=== PATIENT | male | born 1985 | race Two or more races ===

== ENCOUNTER 2024-08-11 12:32 | Inpatient (IN) ==
--- NOTE | 2024-08-11 12:44 | Emergency Department Note ---
Impression & Plan Alcohol withdrawal, Contusion of hand, left, Contusion of right middle finger ED Provider Note NAME: NIXON HERNANDEZ AGE: 39 SEX: M : 1985 ARRIVES VIA: Ambulance INFORMANT: Patient, EMS ED PROVIDER(S): Trevon Camarena DO CHIEF COMPLAINT: Alcohol withdrawal HPI: The patient is a 39-year-old male who presented to the emergency department by ambulance. He is currently at [facility] incarcerated since the of this month. The patient is a daily alcohol use history. Over the last 48 hours she has been having difficulty concentrating and hallucinating. The patient punched multiple jaquez stating that he saw spiders. There has been no reported trauma of the head or falls. The patient has no other history of drug use. ROS: See above HPI for pertinent positives & negatives. A total of 10 systems reviewed and were otherwise negative. PAST MEDICAL HISTORY: See Below PAST SURGICAL HISTORY: See Below FAMILY HISTORY: See Below SOCIAL HISTORY: See Below HOME MEDICATIONS: See Below ALLERGIES: See Below VITALS: See Below PHYSICAL EXAMINATION: GENERAL: Patient is awake alert in no acute distress patient is resting comfortably and showing no signs of anxiety EYES: The conjunctivae are clear. The pupils are round and reactive. EARS, NOSE, MOUTH AND THROAT: The nose is without any evidence of any deformity. NECK: The neck is nontender and supple. RESPIRATORY: Normal respiratory effort is noted there is no evidence of wheezing rhonchi or rales CARDIOVASCULAR: Regular rate and rhythm noted there no murmurs rubs or gallops normal S1 normal S2. GASTROINTESTINAL: The abdomen is soft. Abdomen is nontender. MUSCULOSKELETAL/EXTREMITIES: There is no evidence of gross deformity full range of motion is noted in the hips and shoulders. There is swelling over the lateral aspect of the left hand. There is ecchymosis noted as well. There is also swelling over the right middle finger. SKIN: There is no obvious evidence of any rash. There are no petechiae, pallor or cyanosis noted. NEUROLOGIC: Patient is awake alert and oriented x3 MEDICAL DECISION MAKING: The patient is a 39-year-old male who presented to the emergency department for altered mental status. The patient is currently incarcerated at [facility]. he has only been there for a few days. The patient admits to chronic alcohol abuse. The patient was treated with Ativan prior to arrival. I discussed the patient's laboratory and radiographic studies with him. There was a significant language barrier but even with the cheesemaking laborer he was difficulty phenacaine with the patient because of the degree of alcohol withdrawal. He was treated further with Ativan in the emergency department. I discussed his condition with the on- call [facility] hospitalist group. They have agreed to evaluate the patient in the emergency department. Triage Nursing notes reviewed. Prior medical records reviewed Vital Signs: reviewed and remarkable for tachycardia. Differential diagnosis: Infection, hypoglycemia, electrolyte abnormalities, overdose, toxicologic, cardiac sources, intracerebral event, neurologic, trauma, as well as other pathologies. ER treatment provided: See below Diagnostics interpreted by me: ECG: EKG was obtained in the emergency department. My interpretation is normal sinus rhythm at 80 bpm. There is no ectopy. There is no acute ST segment abnormalities noted. No previous tracing was available. Cardiac Monitoring: An order was placed for continuous cardiac monitoring. The monitor shows a rate of 110 bpm with sinus tachycardia. Laboratory studies: As stated above and show below. Imaging studies: See below. Radiographic imaging was reviewed by myself Consultation(s): I discussed this case with Gisel who is on-call for the [facility] hospitalist group. Past Med/Surg History Problem List (Updated 08/11/24 @ 19:00 by Trevon Camarena DO) Contusion of right middle finger (Acute) Contusion of hand, left (Acute) Alcohol withdrawal (Acute) Medical History Chronic alcohol abuse Social History Smoking Status: Never smoker Allergies Allergies Allergy/AdvReac Type Severity Reaction Status Date / Time No Known Allergies Allergy Verified 08/11/24 16:25 Home Meds Home Medications Medication Instructions Recorded Confirmed folic acid 1 mg tablet 1 mg PO DAILY 08/11/24 08/11/24 lorazepam 1 mg tablet 1 mg PO TID PRN CIWA Score > 8 08/11/24 08/11/24 olanzapine 15 mg tablet 15 mg PO HS 08/11/24 08/11/24 thiamine HCl (vitamin B1) 100 mg 100 mg PO DAILY 08/11/24 08/11/24 tablet Results & Data (ED) Vital Signs Vital Signs - 24 hr 08/11/24 12:23 08/11/24 12:23 08/11/24 12:23 Pulse Rate 88 88 Pulse Rate [Right Brachial] 88 Pulse Rate from SpO2 Sensor Pulse Rhythm Regular Regular Pulse Rhythm [Right Brachial] Regular Pulse Strength Normal Pulse Strength [Right Brachial] Normal Respiratory Rate 20 20 20 Respiratory Effort / Characteristics Non-Labored Non-Labored Respiratory Depth Normal Normal Respiratory Pattern Regular Regular Blood Pressure 145/97 H Blood Pressure [Right Arm] 145/97 H Blood Pressure Mean 113 Blood Pressure Mean [Right Arm] 113 Blood Pressure Position Sitting Blood Pressure Position [Right Arm] Sitting Pulse Oximetry 95 98 95 Oxygen Delivery Method Room Air Room Air Room Air Sepsis Recent Fever Within 48 Hours No Sepsis New/Unexplained Change in Mental Status Yes Sepsis Action Taken by Nursing No Action Required 08/11/24 12:40 08/11/24 12:46 08/11/24 13:15 Pulse Rate 84 92 H Pulse Rate [Right Brachial] 89 Pulse Rate from SpO2 Sensor 89 Pulse Rhythm Pulse Rhythm [Right Brachial] Regular Pulse Strength Pulse Strength [Right Brachial] Normal Respiratory Rate 18 21 Respiratory Effort / Characteristics Non-Labored Respiratory Depth Normal Respiratory Pattern Regular Blood Pressure 128/83 Blood Pressure [Right Arm] 139/86 Blood Pressure Mean 98 Blood Pressure Mean [Right Arm] 103 Blood Pressure Position Blood Pressure Position [Right Arm] Pulse Oximetry 99 97 Oxygen Delivery Method Room Air Sepsis Recent Fever Within 48 Hours Sepsis New/Unexplained Change in Mental Status Sepsis Action Taken by Nursing 08/11/24 13:31 08/11/24 13:47 08/11/24 13:51 Pulse Rate 88 84 Pulse Rate [Right Brachial] Pulse Rate from SpO2 Sensor Pulse Rhythm Pulse Rhythm [Right Brachial] Pulse Strength Pulse Strength [Right Brachial] Respiratory Rate 21 Respiratory Effort / Characteristics Respiratory Depth Respiratory Pattern Blood Pressure 139/86 Blood Pressure [Right Arm] Blood Pressure Mean 100 Blood Pressure Mean [Right Arm] Blood Pressure Position Blood Pressure Position [Right Arm] Pulse Oximetry 95 Oxygen Delivery Method Room Air Sepsis Recent Fever Within 48 Hours Sepsis New/Unexplained Change in Mental Status Sepsis Action Taken by [facility] Medications Current Medication List: was personally reviewed by me Laboratory Data Attestation: I reviewed the patient's lab results. 08/11/24 12:46 08/11/24 12:46 Lab Results 09/19/24 09/19/24 09/19/24 Range/Units 12:46 12:57 14:30 WBC 5.36 (4.8-10.8) K/ul RBC 4.01 L (4.70-6.10) M/uL Hgb 13.2 L (14.0-18.0) g/dl Hct 37.4 L (42.0-52.0) % MCV 93.3 (80.0-100.0) fL MCH 32.9 (25.0-34.0) pg MCHC 35.3 (32.0-36.0) g/dL RDW Std Deviation 47.5 H (36.4-46.3) fL RDW Coeff of Ramos 13.9 (11.5-14.5) % Plt Count 80 L (130-400) K/uL MPV 12.0 (9.4-12.4) fL Immature Gran % (Auto) 0.2 % Neut % (Auto) 63.4 % Lymph % (Auto) 19.8 % [place] % (Auto) 14.4 % Eos % (Auto) 1.5 % Baso % (Auto) 0.7 % Neut # (Auto) 3.40 (1.40-6.50) K/uL Lymph # (Auto) 1.06 L (1.20-3.40) K/uL [place] # (Auto) 0.77 H (0.11-0.59) K/uL Eos # (Auto) 0.08 (0.00-0.50) K/uL Baso # (Auto) 0.04 (0.00-0.20) K/uL Immature Gran # (Auto) 0.01 (0.01-0.20) K/uL Platelet Estimate Decreased L (Normal) PT 13.7 H (9.0-12.0) Seconds INR 1.3 H (0.9-1.1) Sodium 140 (136-145) mmol/L Potassium 3.7 (3.5-5.1) mmol/L Chloride 106 (98-107) mmol/L Carbon Dioxide 25 (21-32) mmol/L Anion Gap 9 (3-11) BUN 25 H (6-23) mg/dl Creatinine 1.12 (0.6-1.4) mg/dl Est Cr Clr Drug Dosing Not Reportable Est GFR ( Amer) 94.1 ml/min Est GFR (Non-Af Amer) 81.2 ml/min BUN/Creatinine Ratio 22.3 H (10-20) Glucose 95 (70-99(Fasting)) mg/dl POC Glucose 102 H (70-99) mg/dl Calcium 10.2 (8.6-10.3) mg/dl Magnesium 2.0 (1.7-2.4) mg/dl Total Bilirubin 2.6 H (0.2-1.0) mg/dl AST 68 H (13-39) U/L ALT 42 (7-52) U/L Alkaline Phosphatase 83 (34-104) U/L Total Creatine Kinase 456 H (30-223) U/L Troponin I High Sens 4.7 (0-20) pg/ml Total Protein 8.4 H (6.0-8.3) gm/dl Albumin 4.5 (3.4-5.0) gm/dl Globulin 3.9 (2.5-4.0) gm/dl Albumin/Globulin Ratio 1.2 (0.9-2) Lipase 45 (11-82) U/L Urine Color [place] Urine Appearance Cloudy A (Clear) Urine pH 5.5 (4.5-7.5) Ur Specific [place] 1.029 (1.000-1.030) Urine Protein 2+ H (Negative) Urine Glucose (UA) Negative (Negative) Urine Ketones Trace H (Negative) Urine Blood Negative (Negative) Urine Nitrite Positive A (Negative) Urine Bilirubin 2+ H (Negative) Urine Urobilinogen Positive H (Negative) Ur Leukocyte Esterase 1+ H (Negative) Urine WBC (Auto) 0-5 (0-5) /hpf Urine RBC (Auto) 0-2 (0-2) /hpf U Hyaline Cast (Auto) >20 H (0-2) /lpf U Epithel Cells (Auto) 6-10 H (0-2) /hpf Urine Bacteria (Auto) None Seen (None Seen) Salicylates < 3.0 L (3.0-30) mg/dl Urine Opiates Screen Neg (Neg) Ur Methadone, Qual Neg (Neg) Urine Fentanyl Screen Neg (Neg) Acetaminophen 3 L (10-30) ug/ml Urine Barbiturates Neg (Neg) Ur Phencyclidine (PCP) Neg (Neg) U Amphetamin/Meth Scrn Neg (Neg) MDMA (Ecstasy) Screen Neg (Neg) U Benzodiazepines Scrn Neg (Neg) Ur Cocaine Metabolite Neg (Neg) U Marijuana (THC) Screen Neg (Neg) Ethyl Alcohol mg/dL < 10.0 (<10.0) mg/dl Administered Medications Discontinued Medications Thiamine HCl 200 mg/ Sodium (Chloride) 52 mls @ 210 mls/hr IV NOW STA Stop: 08/11/24 12:52 Last Infusion: 08/11/24 13:49 Dose: Infused Documented By: Admin: 08/11/24 13:02 Dose: 210 mls/hr Documented By: LACHO Lorazepam (Lorazepam 1 Mg/1 Ml Syr Ed Inj Use) 1 mg IV ONE STA Stop: 08/11/24 16:25 Last Admin: 08/11/24 16:29 Dose: 1 mg Documented By: RAKEL Lorazepam (Lorazepam 1 Mg/1 Ml Syr Ed Inj Use) 1 mg IV NOW STA Stop: 08/11/24 16:52 Last Admin: 08/11/24 16:54 Dose: 1 mg Documented By: RAKEL Imaging Data Attestation: I personally reviewed and interpreted this imaging study as follows: My Impression: CT the was obtained in the emergency department. My interpretation is no intracranial hemorrhage or mass effect, final report below. X-ray of the right and left hands were obtained in the emergency department. My interpretation is no definite fracture or dislocation, final report below. Radiologist's Impression: Hand X-Ray 08/11/24 12:38 XR hand LT min 3V routine CLINICAL HISTORY: Left hand injury. COMPARISON STUDY: None. FINDINGS: No fracture or dislocation. Soft tissues are unremarkable. No radiopaque foreign bodies. IMPRESSION: No fractures within the left hand. ACT 112: Negative or not required by law. Electronically signed by: Jovanny Gottlieb M.D. 08/11/2024 1:26 PM Hand X-Ray 08/11/24 12:38 XR hand RT min 3V routine CLINICAL HISTORY: Right hand pain following injury. COMPARISON: None FINDINGS: Alignment of the right hand is anatomic. There are no acute fractures. Joint spaces are preserved. Carpal bones are intact. IMPRESSION: No fracture or dislocation within the right hand. ACT 112: Negative or not required by law. Electronically signed by: Treamine Reeves M.D. 08/11/2024 1:22 PM Chest X-Ray 08/11/24 12:39 XR chest 1V portable HISTORY: 39 years-old Male ams acutely altered mental status COMPARISON: None TECHNIQUE: AP view the chest FINDINGS: Cardiac silhouette is enlarged. Mild right hemidiaphragmatic elevation. No pneumothorax, pleural effusion or overt pulmonary edema. Bones appear grossly intact. IMPRESSION: No acute process. ACT 112: Negative or not required by law. The above report was generated using voice recognition software. It may contain grammatical, syntax or spelling errors. Electronically signed by: Yogesh Kaminski M.D. 08/11/2024 1:[address] 08/11/24 12:39 CT OF THE HEAD WITHOUT CONTRAST CLINICAL HISTORY: Altered mental status. COMPARISON STUDY: No previous studies for comparison. CT DOSE: 625.8 mGy.cm TECHNIQUE: Helical axial images of the head were obtained without IV contrast. Automated exposure control was utilized for the study. A dose lowering technique was utilized adhering to the principles of ALARA. FINDINGS: No acute intracranial hemorrhage, midline shift or mass effect is present. The ventricular system is unremarkable. The basal cisterns are patent. No extra-axial collections are present. There are no findings to suggest acute dural sinus thrombosis or acute territorial infarct. No significant calvarial abnormalities are present. Visualized portions of the sinuses and mastoid air cells are clear. IMPRESSION: No acute intracranial findings. ACT 112: Negative or not required by law. Electronically signed by: Tremaine Reeves M.D. 08/11/2024 1:23 PM Discharge Plan Visit Data Chief Complaint: Hand Injury/Pain Stated Complaint: L HAND INJURY, DETOX ED Provider: Trevon Camarena Discharge Problem: Alcohol withdrawal, Contusion of hand, left, Contusion of right middle finger Patient Disposition: Admitted As Inpatient Discharge Instructions Interventions: ED Discharge Assessment Last Done: 08/11/24 18:06 Discharge Problem: Alcohol withdrawal Qualifiers: Complication of substance-induced condition: with delirium Qualified Code(s): F 10.931 - Alcohol use, unspecified with withdrawal delirium Contusion of hand, left Qualifiers: Encounter type: initial encounter Qualified Code(s): S60.222A - Contusion of left hand, initial encounter Contusion of right middle finger Qualifiers: Encounter type: initial encounter Damage to nail status: without damage Q ualified Code(s): S60.031A - Contusion of right middle finger without damage to nail, initial encounter
[2024-08-11] MEDS: THIAMINE HCL 200 MG in SODIUM CHLORIDE 0.9% 50 ML IV STA (13:02)
--- NOTE | 2024-08-11 13:24 | XRay Report ---
XR hand RT min 3V routine CLINICAL HISTORY: Right hand pain following injury. COMPARISON: None FINDINGS: Alignment of the right hand is anatomic. There are no acute fractures. Joint spaces are pr eserved. Carpal bones are intact. IMPRESSION: No fracture or dislocation within the right hand. ACT 112: Negative or not required by law. Electronically signed by: Tremaine Reeves M.D. 08/11/2024 1:22 PM
--- NOTE | 2024-08-11 13:25 | CT Scan Report ---
CT OF THE HEAD WITHOUT CONTRAST CLINICAL HISTORY: Altered mental status. COMPARISON STUDY: No previous studies for comparison. CT DOSE: 625.8 mGy.cm TECHNIQUE: Helical axial images of the head were obtained without IV contrast. Automated exposure con trol was utilized for the study. A dose lowering technique was utilized adhering to the principles o f ALARA. FINDINGS: No acute intracranial hemorrhage, midline shift or mass effect is present. The ventricular system is unremarkable. The basal cisterns are patent. No extra-axial collections are present. There are no findings to suggest acute dural sinus thrombosis or acute territorial infarct. No significant calvarial abnormalities are present. Visualized portions of the sinuses and mastoid air cells are mame ar. IMPRESSION: No acute intracranial findings. ACT 112: Negative or not required by law. Electronically signed by: Tremaine Reeves M.D. 08/11/2024 1:23 PM
--- NOTE | 2024-08-11 13:27 | XRay Report ---
XR hand LT min 3V routine CLINICAL HISTORY: Left hand injury. COMPARISON STUDY: None. FINDINGS: No fracture or dislocation. Soft tissues are unremarkable. No radiopaque foreign bodies. IMPRESSION: No fractures within the left hand. ACT 112: Negative or not required by law. Electronically signed by: Jovanny Gottlieb M.D. 08/11/2024 1:26 PM
[2024-08-11 13:30] LABS: Alanine Aminotransferase 42 U/L (7-52); Albumin Globulin Ratio 1.2 (0.9-2); Albumin Level 4.5 gm/dl (3.4-5.0); Alkaline Phosphatase 83 U/L (34-104); Anion Gap 9 (3-11); Aspartate Aminotransferase 68 U/L (13-39); BUN Creatinine Ratio 22.3 (10-20); Bilirubin,Total 2.6 mg/dl (0.2-1.0); Blood Urea Nitrogen 25 mg/dl (6-23); Calcium 10.2 mg/dl (8.6-10.3); Carbon Dioxide 25 mmol/L (21-32); Chloride 106 mmol/L (98-107); Creatine Kinase 456 U/L (30-223); Est GFR (African American) 94.1 ml/min; Est GFR (Non-African American) 81.2 ml/min; Globulin 3.9 gm/dl (2.5-4.0); Glucose 95 mg/dl (70-99(Fasting)); Lipase 45 U/L (11-82); Potassium 3.7 mmol/L (3.5-5.1); Sodium 140 mmol/L (136-145); Total Protein 8.4 gm/dl (6.0-8.3)
[2024-08-11 13:31] LABS: Acetaminophen 3 ug/ml (10-30); Salicylate < 3.0 mg/dl (3.0-30)
[2024-08-11 13:35] LABS: INR 1.3 (0.9-1.1); Prothrombin Time 13.7 Seconds (9.0-12.0)
[2024-08-11 13:40] LABS: Hematocrit (blood only) 37.4 % (42.0-52.0); Hemoglobin 13.2 g/dl (14.0-18.0); Mean Corpuscular Hemoglobin 32.9 pg (25.0-34.0); Mean Corpuscular Hgb Conc 35.3 g/dL (32.0-36.0); Mean Corpuscular Volume 93.3 fL (80.0-100.0); Platelet Count 80 K/uL (130-400); RDW Coefficient of Variation 13.9 % (11.5-14.5); RDW Standard Deviation 47.5 fL (36.4-46.3); Red Blood Count 4.01 M/uL (4.70-6.10); White Blood Count 5.36 K/ul (4.8-10.8)
[2024-08-11 13:41] LABS: Troponin I High Sensitivity 4.7 pg/ml (0-20)
[2024-08-11 13:43] LABS: Basophils # (auto) 0.04 K/uL (0.00-0.20); Basophils % (auto) 0.7 %; Eosinophils # (auto) 0.08 K/uL (0.00-0.50); Eosinophils % (auto) 1.5 %; Immature Granulocytes # (auto) 0.01 K/uL (0.01-0.20); Immature Granulocytes % (auto) 0.2 %; Lymphocytes # (auto) 1.06 K/uL (1.20-3.40); Lymphocytes % (auto) 19.8 %; Monocytes # (auto) 0.77 K/uL (0.11-0.59); Monocytes % (auto) 14.4 %; Neutrophils % (auto) 63.4 %; Platelet Estimate Decreased (Normal)
--- NOTE | 2024-08-11 13:52 | XRay Report ---
XR chest 1V portable HISTORY: 39 years-old Male ams acutely altered mental status COMPARISON: None TECHNIQUE: AP view the chest FINDINGS: Cardiac silhouette is enlarged. Mild right hemidiaphragmatic elevation. No pneumothorax, pleural effu oma or overt pulmonary edema. Bones appear grossly intact. IMPRESSION: No acute process. ACT 112: Negative or not required by law. The above report was generated using voice recognition software. It may contain grammatical, syntax o r spelling errors. Electronically signed by: Yogesh Kaminski M.D. 08/11/2024 1:50 PM
[2024-08-11 14:53] LABS: Appearance Urine Cloudy (Clear); Bacteria Urine Automated None Seen (None Seen); Bilirubin Urine 2+ (Negative); Blood Urine Negative (Negative); Cast Urine Automated >20 /lpf (0-2); Color Urine Orange; Glucose Urine UA Negative (Negative); Ketones Urine Trace (Negative); Leukocyte Esterase Urine 1+ (Negative); Nitrite Urine Positive (Negative); Protein Urine 2+ (Negative); RBC Urine Automated 0-2 /hpf (0-2); Specific Gravity Urine 1.029 (1.000-1.030); Urobilinogen Urine Positive (Negative); WBC Urine Automated 0-5 /hpf (0-5); pH Urine 5.5 (4.5-7.5)
--- NOTE | 2024-08-11 14:54 | Electrocardiogram Report ---
Test Reason : Blood Pressure : */* mmHG Vent. Rate : 80 BPM Atrial Rate : 80 BPM P-R Int : 144 ms QRS Dur : 76 ms QT Int : 394 ms P-R-T Axes : 30 3 -1 degrees QTcB Int : 454 ms Normal sinus rhythm Normal ECG No previous ECGs available Confirmed by Jeffrey Madera ([id number]) on 08/11/2024 2:54:05 PM Referred By: Confirmed By: Jeffrey Madera
--- NOTE | 2024-08-11 14:57 | History & Physical Report ---
Date of Service August 11, 2024 Assessment & Plan (1) Alcohol withdrawal: Plan Jarad Warren is a 39y/o M with PMHx of chronic alcohol abuse who presented to the ED via EMS from [facility] for evaluation of left hand pain and alcohol withdrawal symptoms. Patient is Georgian-speaking only. Was unable to gather any history from the patient. History was obtained from [facility] staff present at bedside and paperwork provided by the facility. Patient's last alcoholic drink was approximately 5 days ago. He started experiencing hallucinations yesterday. Had punched the jaquez in his cell because he thought he saw mice and spiders crawling on them. Patient was previously drinking beer and vodka daily but has not had an alcoholic drink since arriving at [facility] on 08/08/24. He did receive a 1mg dose of po Ativan this morning without much improvement. Was diaphoretic and developed a tremor this morning according to staff. Unsure of why patient is prescribed olanzapine - was not able to speak with the patient and this was not outlined in his medical records provided by the facility. Alcohol Withdrawal Chronic Alcohol Abuse: S/p 200mg IV thiamine and 2mg IV Ativan in the ED. Tox screen negative. Ethyl alcohol negative. Imaging negative. Appears patient's last drink was ~5 days ago. Unsure of his typical drinking habits. AWSS protocol initiated. Active withdrawal management w/ PRN IV Ativan and greg po Librium. Continue daily folic acid, thiamine. Gentle IVF. Continue olanzapine HS. Thrombocytopenia: Plt count 80 on admission. Follow repeat CBC in AM. Will use SCDs/TEDs for now. Unsure if patient has previous diagnosis of thrombocytopenia given limited medical record availability. UA Findings: UA positive for nitrites, leukocyte esterase - however no urine bacteria seen. Urine cx pending to r/o possible UTI. Unsure if patient is experiencing any urinary symptoms. C/F Possible Cirrhosis: Concern for cirrhosis given thrombocytopenia, UA findings and AST + total bili elevations. CTAP pending for further evaluation. Ammonia pending. Trend LFTs with AM labs - follow closely. DVT Prophylaxis: SCDs/TEDs for now. Code Status: FULL CODE PCP: Chilo Rangel DO [Unassigned] Disposition: Admit to PCU/Telemetry Patient seen in collaboration with Dr. Penn. Please see addendum. I spent a total of 50 minutes coordinating, documenting, and providing care for this patient excluding time spent in the performance of separately billed services. This included personally reviewing all current laboratories and imaging studies, medical reconciliation, outpatient chart review and discussion with specialists. This chart was completed in part utilizing Speech Voice Recognition Software. Grammatical errors, random word insertions, pronoun errors, and incomplete sentences are an occasional consequence of this system due to software limitations, ambient noise, and hardware issues. Any formal questions or concerns about the content, text, or information contained within the body of this dictation should be directly addressed to the provider for clarification. History of Present Illness Chief Complaint: Left Hand Pain, Alcohol Withdrawal Primary Care Provider: DO Jarad Tan is a 39y/o M with PMHx of chronic alcohol abuse who presented to the ED via EMS from [facility] for evaluation of left hand pain and alcohol withdrawal symptoms. Patient is Georgian-speaking only. Was unable to gather any history from the patient. History was obtained from [facility] staff present at bedside and paperwork provided by the facility. Patient's last alcoholic drink was approximately 5 days ago. He started experiencing hallucinations yesterday. Had punched the jaquez in his cell because he thought he saw mice and spiders crawling on them. Patient was previously drinking beer and vodka daily but has not had an alcoholic drink since arriving at [facility] on 08/08/24. He did receive a 1mg dose of po Ativan this morning without much improvement. Was diaphoretic and developed a tremor this morning according to staff. Unsure of why patient is prescribed olanzapine - was not able to speak with the patient and this was not outlined in his medical records provided by the facility. Allergies Allergy/AdvReac Type Severity Reaction Status Date / Time No Known Allergies Allergy Verified 08/11/24 16:25 Home Medications Medication Instructions Recorded Confirmed Type folic acid 1 mg tablet 1 mg PO DAILY 08/11/24 08/11/24 History lorazepam 1 mg tablet 1 mg PO TID PRN CIWA Score > 8 08/11/24 08/11/24 History olanzapine 15 mg tablet 15 mg PO HS 08/11/24 08/11/24 History thiamine HCl (vitamin B1) 100 mg 100 mg PO DAILY 08/11/24 08/11/24 History tablet Past Med/Surg History Problem List (Updated 08/11/24 @ 19:00 by Trevon Camarena DO) Contusion of right middle finger (Acute) Contusion of hand, left (Acute) Alcohol withdrawal (Acute) Medical History Chronic alcohol abuse Social History Smoking Status: Never smoker Review of Systems Review of Systems: At least ten systems reviewed and negative, except as noted in the HPI. Physical Exam Physical Exam: General: Vitals as above, laying down in bed, hands and feet are cuffed, not conversive, Georgian-speaking only. HEENT: Normocephalic, atraumatic. PERRL, conjunctivae normal, anicteric sclerae, oropharynx normal. Respiratory: Normal respiratory effort, lungs clear to auscultation, no wheezing. No accessory muscle use. Cardiovascular: Regular rate, rhythm, no murmur, normal peripheral pulses, no BLE edema. Vessels: No JVD. Abdomen/GI: Normal bowel sounds, soft, nontender, no hepatosplenomegaly. Extremities/Musculoskeletal: No cyanosis or clubbing, extremities motor strength not formally tested. Neurologic: EOMI, no focal deficits, CN's II-XI not formally tested but appear grossly intact bilaterally. Skin: No rashes, normal color, warm/dry. L hand with some bruising and swelling. Fingers of R hand also appear swollen. Results & Data Results & Data Vital Signs (Past 12 Hours) Vital Signs Pulse Pulse Resp BP BP Pulse Ox O2 Del Method 08/11/24 13:47 88 95 Room Air 08/11/24 12:46 84 08/11/24 12:40 89 18 139/86 99 Room Air 08/11/24 12:23 88 20 145/97 H 95 Room Air 08/11/24 12:23 88 20 98 Room Air 08/11/24 12:23 88 20 145/97 H 95 Room Air Laboratory Results Short CBC 08/11/24 Range/Units 12:46 WBC 5.36 (4.8-10.8) K/ul Hgb 13.2 L (14.0-18.0) g/dl Hct 37.4 L (42.0-52.0) % Plt Count 80 L (130-400) K/uL BMP 08/11/24 12:46 Sodium 140 Potassium 3.7 Chloride 106 Carbon Dioxide 25 BUN 25 H Creatinine 1.12 Glucose 95 Calcium 10.2 Cardiac Enzymes 08/11/24 Range/Units 12:46 Total Creatine Kinase 456 H (30-223) U/L Liver Function 08/11/24 Range/Units 12:46 Total Bilirubin 2.6 H (0.2-1.0) mg/dl AST 68 H (13-39) U/L ALT 42 (7-52) U/L Alkaline Phosphatase 83 (34-104) U/L Albumin 4.5 (3.4-5.0) gm/dl Urine 08/11/24 Range/Units 14:30 Urine Color [place] Urine Appearance Cloudy A (Clear) Urine pH 5.5 (4.5-7.5) Ur Specific [place] 1.029 (1.000-1.030) Urine Protein 2+ H (Negative) Urine Glucose (UA) Negative (Negative) Diagnostic Findings Hand X-Ray 08/11/24 12:38 XR hand LT min 3V routine CLINICAL HISTORY: Left hand injury. COMPARISON STUDY: None. FINDINGS: No fracture or dislocation. Soft tissues are unremarkable. No radiopaque foreign bodies. IMPRESSION: No fractures within the left hand. ACT 112: Negative or not required by law. Electronically signed by: Jovanny Gottlieb M.D. 08/11/2024 1:26 PM Hand X-Ray 08/11/24 12:38 XR hand RT min 3V routine CLINICAL HISTORY: Right hand pain following injury. COMPARISON: None FINDINGS: Alignment of the right hand is anatomic. There are no acute fractures. Joint spaces are preserved. Carpal bones are intact. IMPRESSION: No fracture or dislocation within the right hand. ACT 112: Negative or not required by law. Electronically signed by: Tremaine Reeves M.D. 08/11/2024 1:22 PM Chest X-Ray 08/11/24 12:39 XR chest 1V portable HISTORY: 39 years-old Male ams acutely altered mental status COMPARISON: None TECHNIQUE: AP view the chest FINDINGS: Cardiac silhouette is enlarged. Mild right hemidiaphragmatic elevation. No pneumothorax, pleural effusion or overt pulmonary edema. Bones appear grossly intact. IMPRESSION: No acute process. ACT 112: Negative or not required by law. The above report was generated using voice recognition software. It may contain grammatical, syntax or spelling errors. Electronically signed by: Yogesh Kaminski M.D. 08/11/2024 1:[address] 08/11/24 12:39 CT OF THE HEAD WITHOUT CONTRAST CLINICAL HISTORY: Altered mental status. COMPARISON STUDY: No previous studies for comparison. CT DOSE: 625.8 mGy.cm TECHNIQUE: Helical axial images of the head were obtained without IV contrast. Automated exposure control was utilized for the study. A dose lowering technique was utilized adhering to the principles of ALARA. FINDINGS: No acute intracranial hemorrhage, midline shift or mass effect is present. The ventricular system is unremarkable. The basal cisterns are patent. No extra-axial collections are present. There are no findings to suggest acute dural sinus thrombosis or acute territorial infarct. No significant calvarial abnormalities are present. Visualized portions of the sinuses and mastoid air cells are clear. IMPRESSION: No acute intracranial findings. ACT 112: Negative or not required by law. Electronically signed by: Tremaine Reeves M.D. 08/11/2024 1:23 PM Medications Administered Discontinued Medications Thiamine HCl 200 mg/ Sodium (Chloride) 52 mls @ 210 mls/hr IV NOW STA Stop: 08/11/24 12:52 Last Infusion: 08/11/24 13:49 Dose: Infused Documented By: Admin: 08/11/24 13:02 Dose: 210 mls/hr Documented By: LACHO Code Status & VTE Plan Code Status FULL CODE Supervising Physician Co-Signing Physician Notes Pt was seen and examined by myself, Suha Penn MD on the day of service. Care was coordinated with Gisel Isaac PA-C. 39-year-old male presenting from an immigration processing center for further ev aluation of hallucinations. Reportedly patient was punching the wall in his cell as he was seeing insects crawling. On exam patient was alert at that time, agitated, with bilateral arms restrained in handcuffs as well as on his feet. Talk screen noting negative alcohol however patient with reported history of chronic daily alcohol use with none since being at this institution on August 08 Concern for alcohol withdrawal, AWSS protocol Patient started on Librium With as needed Ativan PCU telemetry as patient in active withdrawal Concern for cirrhosis-Noted thrombocytopenia, abnormal UA with urobilinogen and bilirubin, AST slightly elevated. CT abdomen pelvis pending, ammonia pending. Trend liver enzymes with a.m. labs Acute metabolic/toxic encephalopathy- Head CT unremarkable. Ammonia pending. Likely in setting of alcohol withdrawal and possible cirrhosis. AWSS protocol. Patient started on Librium With as needed Ativan. If worsening might need ICU admission for Precedex. Mild rhabdo-Continue IV fluids Otherwise as above. I spent a total [id number] coordinating, documenting, and providing care for this patient excluding time spent in the performance of separately billed s ervices (1) Alcohol withdrawal Complication of substance-induced condition: with unspecified complication Qualified Code(s): F10.939 - Alcohol use, unspecified with withdrawal, unspecified
[2024-08-11 15:16] LABS: Amphetamines+Metham, Urine Neg (Neg); Barbiturates, Urine Neg (Neg); Benzodiazepine, Urine Neg (Neg); Cocaine, Urine Neg (Neg); Fentanyl, Urine Neg (Neg); MDMA (Ecstacy), Urine Neg (Neg); Marijuana, Urine Neg (Neg); Methadone, Urine Neg (Neg); Opiate, Urine Neg (Neg); Phencyclidine, Urine Neg (Neg)
[2024-08-11] MEDS: LORazepam 1 MG/1 ML SYR ED Inj Use IV STA ×2 (16:29→16:54)
[2024-08-11] MEDS ORDERED: LORazepam 2 MG/1 ML VIAL IV STA (16:38)
[2024-08-11] MEDS ORDERED: ACETAMINOPHEN 325 MG TAB PO PRN (18:06)
[2024-08-11] MEDS ORDERED: chlordiazePOXIDE ALCOHOL WITHDRAWL 50MG PO STA (18:06)
[2024-08-11] MEDS ORDERED: Ativan IV Alcohol Withdrawal--Active Protocol IV PRN (18:06)
[2024-08-11] MEDS ORDERED: ONDANSETRON INJ 2 MG/ML 2 ML VIAL IV PRN (18:06)
[2024-08-11] MEDS ORDERED: POLYETHYLENE (MIRALAX) 17 GM PACK PO PRN (18:06)
[2024-08-11] MEDS: OPTIRAY 320 100ml IV ONE (19:15)
--- NOTE | 2024-08-11 19:50 | CT Scan Report ---
Exam(s): CT ABDOMEN + PELVIS With Contrast IV Amt: 92 ml optiray 320 EXAM: CT Abdomen and Pelvis With Intravenous Contrast CLINICAL HISTORY: Reason for exam: r/o cirrhosis, abdominal pain. TECHNIQUE: Axial computed tomography images of the abdomen and pelvis with intravenous contrast. CTDI is 27.39 mGy and DLP is 1453.59 mGy-cm. Automated exposure control was utilized for the study. A dose lowering technique was utilized adhering to the principles of ALARA. CONTRAST: Patient received 92 ml optiray 320 of IV contrast COMPARISON: None FINDINGS: Lung bases: Mild dependent atelectasis bilaterally. ABDOMEN: Liver: Hepatic steatosis. Hepatomegaly. Gallbladder and bile ducts: Unremarkable. No calcified stones. No ductal dilation. Pancreas: Unremarkable. No mass. No ductal dilation. Spleen: Unremarkable. No splenomegaly. Adrenals: Unremarkable. No mass. Kidneys and ureters: Nonspecific hypoattenuation in the left kidney. Question pyelonephritis versus developing infarct versus nonspecific lesion. Further evaluation could be performed with ultrasound and/or contrast-enhanced MRI. No hydronephrosis or obstructing ureteral stone. Stomach and bowel: Evaluation of the stomach is limited by underdistention. No mucosal thickening. PELVIS: Appendix: Normal appendix. Bladder: Mild prominence of the bladder wall is nonspecific. Please correlate with urinalysis if concerned for cystitis. Reproductive: Unremarkable as visualized. ABDOMEN and PELVIS: Intraperitoneal space: Unremarkable. No free air. No significant fluid collection. Bones/joints: No acute fracture. No dislocation. Soft tissues: Unremarkable. Vasculature: Unremarkable. No abdominal aortic aneurysm. Lymph nodes: Unremarkable. No enlarged lymph nodes. IMPRESSION: 1. Nonspecific hypoattenuation in the left kidney. Question pyelonephritis versus developing infarct versus nonspecific lesion. Further evaluation could be performed with ultrasound and/or contrast- enhanced MRI. 2. Mild prominence of the bladder wall is nonspecific. Please correlate with urinalysis if concerned for cystitis. 3. Hepatic steatosis. Hepatomegaly. Electronically signed by: Kaitlin Oliveira M.D. 08/11/24 19:49 PM
[2024-08-11] MEDS: cefTRIAXone SODIUM 2,000 MG/50 ML BAG IV STA (21:29)
[2024-08-11] MEDS: chlordiazePOXIDE HCl 25 MG CAP PO SCH (23:24)
[2024-08-12] MEDS: LACTATED RINGER'S 1,000 ML IV SCH (00:05)
[2024-08-12] MEDS: OLANZapine 5 MG TABLET PO SCH (00:06)
[2024-08-12] MEDS: LORazepam 2 MG/1 ML VIAL IV PRN ×3 (03:21→23:32)
--- NOTE | 2024-08-12 04:19 | Ultrasound Report ---
Exam(s): US RENAL EXAM: US Retroperitoneal Limited, Renal CLINICAL HISTORY: Reason for exam: developing infarct vs pyelonephritis on ct scan. TECHNIQUE: Real-time limited ultrasound of the retroperitoneum with image documentation. COMPARISON: No relevant prior studies available. FINDINGS: Right kidney: Unremarkable. No stones. No hydronephrosis. Right kidney measures 11.2 cm. Left kidney: Left kidney measures 11 cm. Slight increase in parenchymal echogenicity the left kidney at the area of concern. Vascularity is preserved in this region. No stones. No hydronephrosis. Bladder: Small amount of debris within the urinary bladder. Left ureteral jet is present. IMPRESSION: Slight interval increase in parenchymal echogenicity in the left kidney in the area of concern. Lesion remains indeterminate. Small amount of debris within the urinary bladder. Findings represent cystitis. Electronically signed by: Tano Chowdary MD 08/12/24 04:18 AM
--- NOTE | 2024-08-12 05:21 | Urology Consultation ---
<Statement entered by Javier Sharma MD - 08/12/24 07:28> I have discussed Mr. Warren' case with Xavi Velarde PA-C and agree with the above documentation. Urinalysis suspicious for infection. He is currently receiving antibiotics and should continue these for now. Okay to narrow coverage as culture data becomes available. Lesion on his kidney on CT scan could represent focal pyelonephritis, developing abscess or renal infarct. Would start by treating for pyelonephritis. If he does not improve clinically, could reimage to see if this develops into an abscess. Would ideally recommend reimaging this in 2 to 3 months to evaluate for any changes. If this is an ischemic portion of the kidney, unfortunately there is no good option for revascularization. -Javier Sharma MD. Date of Consultation August 12, 2024 Assessment & Plan (1) Kidney lesion: The patient has been admitted on the hospitalist service due to concerns for alcohol withdrawal: Management of the patient's alcohol withdrawals and underlying medical comorbidities will be deferred to the primary service There is concern the patient has an indeterminant lesion of the left kidney. It is uncertain if this represents a renal infarct, pyelonephritis, or nonspecific lesion: It was not possible to obtain any history regarding any urologic symptomatology due to the patient's altered mental status is noted to his present illness He has noted to have an abnormal urinalysis and therefore had a urine culture sent as well as has been empirically placed on Rocephin in the event that this is pyelonephritis. Would recommend continuing antibiotics which can then be further tailored based on culture results. It is uncertain if this represents renal infarct however I would consider this less likely as the patient has preserved vascularity of his left kidney on ultrasound. In addition an EKG at time admission showed normal sinus rhythm making thromboembolic phenomenon less likely. We cannot however entirely exclude renal infarct but currently there is no surgical option for this problem. Consideration can be given to perform the full hypercoagulable workup and anticoagulating the patient but we will defer this to the primary service as he has other medical comorbidities that may preclude anticoagulation Will monitor the patient clinically for the present time. If clinical deterioration ensues we can consider reimaging the patient with additional recommendations patient is to follow thereafter. The above recommendations were discussed directly with the primary service History of Present Illness Reason for Consultation: Abnormal imaging of left kidney Attending Physician: Suha Penn MD History of Present Illness This is a 39-year-old male who is Icelandic-speaking only. I could not obtain any historical information from the patient and all information was obtained from existing records and discussion with nursing staff. This patient is currently being detained by the department of homeland security to see if he is going to be deported to his country of origin. Patient apparently has a history of alcohol abuse and he began experiencing hallucinations at the care home facility for patient reportedly said he saw spiders crawling on him and punched a wall causing hand injury. There is concern the patient had alcohol withdrawal and he was therefore sent to [facility] for further evaluation. It is noteworthy to mention that at the patient is Icelandic-speaking only as noted above. We did attempt to use the supervisor bit and shank department service at the time of my consultation, however the patient had altered mental status and cannot even participate with the supervisor bit and shank department service with a Icelandic-speaking lang interpreter. Since arrival to the hospital patient has had labs and imaging which independent reviewed. The patient had an x-ray of his left hand that showed no evidence of any fractures. He also had x-rays of his right hand that did not demonstrate any fractures. Chest x-ray showed no evidence of pneumonia. A CT scan of the head showed no acute intracranial findings. A CT scan abdomen pelvis showed the patient had some nonspecific hypoattenuation in the left kidney and the interpreting radiologist felt that this could be a developing infarct versus a nonspecific lesion or even a pyelonephritis. Renal ultrasound did show some increased parenchymal echogenicity of the left kidney with indeterminate lesion. The vascularity did appear to be preserved in this region. Labs included a CBC with a white blood cell count was normal. His platelet count was 80,000. Hemoglobin and hematocrit are 13.2 and 37.4. INR was 1.3. Chemistry profile showed sodium and potassium are normal. The patient's BUN and creatinine were 25 and 1.1. Patient had elevated LFTs with a total bilirubin of 2.6 and an AST of 68. His ALT and alk phos were both normal. Lipase was not elevated urinalysis showed cloudy urine. This was positive for nitrites and will have 1+ leukocyte Estrace. There was no pyuria or bacteria noted. A toxicology screen was noted to be negative for all substances tested and a COVID test was negative. At the time of my interview the patient was noted to have altered mental status and could not participate in the interview process. Allergies Allergy/AdvReac Type Severity Reaction Status Date / Time No Known Allergies Allergy Verified 08/11/24 16:25 Home Medications Medication Instructions Recorded Confirmed Type folic acid 1 mg tablet 1 mg PO DAILY 08/11/24 08/11/24 History lorazepam 1 mg tablet 1 mg PO TID PRN CIWA Score > 8 08/11/24 08/11/24 History olanzapine 15 mg tablet 15 mg PO HS 08/11/24 08/11/24 History thiamine HCl (vitamin B1) 100 mg 100 mg PO DAILY 08/11/24 08/11/24 History tablet Patient History Medical History Chronic alcohol abuse Social History Smoking Status: Never smoker Hx Alcohol Use: Yes Alcohol type: hard liquor Hx Substance Use: No Preferred Language: Icelandic Communication Ability: Financial Solutions Advisor Required: Yes Beliefs That Will Affect Care: None Current Living Situation: Other Other Information That Helps Us Care for You: No Feels Safe at Home: Yes Safety Concerns: Feels Safe At This Time Assistive Devices: None Review of Systems Review of Systems: Unobtainable due to cognitive status Physical Exam Constitutional: The patient was noted to have altered mental status at the time of my interview but did not appear to be in any distress Eyes: Patient's pupils were pinpoint but reactive to light. There is no scleral jaundice ENMT: Unable to assess hearing due to altered mental status Neck: trachea midline Respiratory: Patient was noted to have breath sounds bilaterally. There is no wheezing. He did not appear to be in respiratory distress and was not using accessory muscles to aid in respiration Cardiovascular: Rate/Rhythm: regular rate and regular rhythm Gastrointestinal (Abdomen): At the time my interview patient's abdomen was noted to be soft. It was nonrigid. Palpation did not appear to elicit a painful response Musculoskeletal: There not appear to be any calf tenderness Skin: no rashes Neurologic: Patient was moving all 4 extremities but he had altered mental status and was not following commands appropriately Genitourinary: Percussion did not elicit any CVA tenderness bilaterally Results & Data Vital Signs (Past 12 Hours) Vital Signs Temp Pulse Pulse Resp BP BP BP 08/12/24 03:02 36.7 C 63 18 148/87 H 08/11/24 23:52 36.8 C 88 18 171/98 H 08/11/24 22:06 65 16 160/104 H 08/11/24 21:00 16 137/90 08/11/24 21:00 137/90 08/11/24 20:30 131/90 08/11/24 20:00 127/86 08/11/24 19:27 135/70 08/11/24 19:06 146/119 H 08/11/24 18:00 131/86 08/11/24 17:42 133/87 Pulse Ox O2 Del Method 08/12/24 03:02 98 Room Air 08/11/24 23:52 100 Room Air 08/11/24 22:06 99 08/11/24 21:00 97 08/11/24 21:00 08/11/24 20:30 08/11/24 20:00 97 08/11/24 19:27 92 08/11/24 19:06 97 08/11/24 18:00 96 08/11/24 17:42 95 PG Care Time/CCT Total # of Minutes Spent Total Time Spent with Patient: Total time spent is greater than 50% in coordination of care (as documented) at patient's floor/unit and/or counseling patient: Coding Level of Care Code 07597 IN/OBS CONSULT LVL 5,80M Diagnoses Kidney lesion N28.9
[2024-08-12] MEDS ORDERED: Nursing to Pharmacy Communication SCH ×2 (06:30→12:15)
[2024-08-12 07:28] LABS: Albumin Globulin Ratio 1.1 (0.9-2); Albumin Level 4.1 gm/dl (3.4-5.0); BUN Creatinine Ratio 22.8 (10-20); Calcium 9.6 mg/dl (8.6-10.3); Est GFR (African American) 129.3 ml/min; Est GFR (Non-African American) 111.5 ml/min; Globulin 3.9 gm/dl (2.5-4.0); Phosphorus 3.9 mg/dl (2.5-4.9)
[2024-08-12 07:42] LABS: Hematocrit (blood only) 38.5 % (42.0-52.0); Hemoglobin 13.4 g/dl (14.0-18.0); Mean Corpuscular Hgb Conc 34.8 g/dL (32.0-36.0); Mean Corpuscular Volume 94.8 fL (80.0-100.0); Mean Platelet Volume 11.9 fL (9.4-12.4); Platelet Count 71 K/uL (130-400); RDW Standard Deviation 49.1 fL (36.4-46.3); Red Blood Count 4.06 M/uL (4.70-6.10); White Blood Count 4.64 K/ul (4.8-10.8)
[2024-08-12] MEDS: FOLIC ACID 1 MG TAB PO SCH (11:43)
[2024-08-12] MEDS: THIAMINE HCL 100 MG TAB PO SCH (11:43)
--- NOTE | 2024-08-12 12:53 | Hospitalist Progress Note ---
Date of Service August 12, 2024 Assessment & Plan (1) Alcohol withdrawal: (2) Kidney lesion: (3) Contusion of hand, left: (4) Contusion of right middle finger: (5) Chronic alcohol abuse: (6) Pancytopenia: Plan Patient presents to the emergency room with evidence of acute alcohol withdrawal. Last drink approximately 5 to 6 days ago. Risk for severe DTs now significantly decreased. Incidentally on imaging found to have a Indeterminate lesion on the left kidney. Discontinue scheduled Librium Continue Molly scoring with as needed Ativan Urine analysis did not noted any bacteria, await urine culture, ceftriaxone empirically Hypercoagulable profile sent for them possibility that the kidney lesion could be an infarct. Continue on telemetry monitoring to rule out occult arrhythmia Encouraged oral intake Suspect patient's pancytopenia and coagulopathy due to patient's chronic alcohol misuse Continue to encourage cessation of all alcohol Anticipate if patient eating and not requiring significant amounts of as needed Ativan patient could be discharged as soon as tomorrow. Admission and Anticipated Discharge Date Admission Date: August 11, 2024 Subjective Patient extremely drowsy from medications received overnight. Minimal symptoms of severe alcohol withdrawal. States he does not have much hunger. Denies any specific pain. No evidence of hallucinations at this time. Review of Systems Review of Systems: Constitutional: Drowsy but does awaken him HEENT: Mucous membranes moist. Lungs: Clear to auscultation, decreased, no wheezes rales or rhonchi CV: S1-S2, regular Abdomen: Soft, nontender, nondistended Extremities: No significant edema Neuro: No focal deficits Psych: Cooperative, drowsy Results & Data Results & Data Vital Signs (Past 12 Hours) Vital Signs Temp Pulse Pulse Resp BP Pulse Ox O2 Del Method 08/12/24 11:32 36.8 C 79 18 153/97 H 98 Room Air 08/12/24 09:33 36.5 C 81 19 144/95 H 100 Room Air 08/12/24 07:21 36.4 C L 67 18 128/86 98 Room Air 08/12/24 05:30 105 H 08/12/24 05:26 36.5 C 85 20 163/88 H 97 Room Air 08/12/24 05:15 Room Air 08/12/24 05:11 36.5 C 80 20 138/62 98 Room Air 08/12/24 03:02 36.7 C 63 18 148/87 H 98 Room Air Diagnostic Findings Reviewed imaging, laboratory and diagnostic studies. Pertinent findings as below. Pancytopenia Coagulopathy Reviewed urology consultation (1) Alcohol withdrawal Complication of substance-induced condition: with delirium Qualified Code(s): F10.931 - Alcohol use, unspecified with withdrawal delirium (3) Contusion of hand, left Encounter type: initial encounter Qualified Code(s): S60.222A - Contusion of left hand, initial encounter (4) Contusion of right middle finger Damage to nail status: without damage Encounter type: initial encounter Qualified Code(s): S60.031A - Contusion of right middle finger without damage to nail, initial encounter
[2024-08-12] MEDS: SODIUM CHLORIDE 0.9% 1,000 ML IV SCH (13:29)
[2024-08-12] MEDS ORDERED: chlordiazePOXIDE HCl 25 MG CAP PO SCH (20:00)
[2024-08-12] MEDS: cefTRIAXone SODIUM 2,000 MG/50 ML BAG IV SCH (22:24)
[2024-08-13] MEDS ORDERED: GABAPENTIN 800MG ALCOHOL WITHDRAWAL LOAD PO STA (07:41)
--- NOTE | 2024-08-13 07:57 | Hospitalist Progress Note ---
Date of Service August 13, 2024 Assessment & Plan (1) Alcohol withdrawal: (2) Kidney lesion: (3) Contusion of hand, left: (4) Contusion of right middle finger: (5) Chronic alcohol abuse: (6) Pancytopenia: Plan Mr. Lopez is a 39 year old gentleman with no clear medical history who was detained at an immigrant holding facility on 08/09 and brought to the ED on 08/11 for concern for acute alcohol withdrawal. Patient brought to [facility] given reports of agitation starting on 08/10 with subsequent hallucinations of spiders and bugs. Patient tremulous on exam and seemingly very confused. Received notable ativan overnight. WIll start gabapentin to aid in symptoms, if still heavily requiring benzos will further explore other etiologies of ams. Incidentally on imaging found to have a Indeterminate lesion on the left kidney. #Alcohol withdrawal c/f delirium tremens #Acute encephalopathy, 2/2 above #Alcohol use disorder Ongoing hallucinations and ativan requirements increased in evening Starting gabapentin to help augment severity of symptoms Monitor Ativan prn dosing through out day Continue AWSS -seemingly improved with gabapentin given AMS, IV thiamine 500mg q8h #Thrombocytopenia likely iso acute intoxication/chronic AUD continue to trend, anticipate recovery #Hepatic steatosis #Mild transaminitis AST > ALT minimally CT imaging with hepatomegaly and steatosis Downtrending on cmp #Abnormal UA #Kidney lesion CT with prominence of bladder -Indeterminant renal lesion, requires follow up -Hypercoag work up pending, however, low suspicion of renal infcarct per Urology will defer AC at this time Continue CTX until culture results #Hand Contusion L>R Hands with erythema and swelling, self induced 2/2 striking jaquez Hand xrays with no acute fractures supportive care DVT start lovenox ppx Dispo 2-3 days likely contingent on mental status Admission and Anticipated Discharge Date Admission Date: August 11, 2024 Subjective Required 10mg ativan overnight Score up to 12 overnight marked by tremor, ?hallucination on scale Patient awake, alert to self and hospital, but other amado unclear of year or circumstances leading up to presentation senior sas developer utilized. Not answering questions correctly, Physical Exam Constitutional: confused, tremulous Respiratory: normal respiratory effort, lungs clear to auscultation Cardiovascular: RRR, no murmur, no edema Results & Data Results & Data Vital Signs (Past 12 Hours) Vital Signs Temp Pulse Pulse Pulse Resp BP BP 08/13/24 07:36 36.9 C 72 15 156/99 H 08/13/24 06:41 76 16 133/83 08/13/24 05:05 36.7 C 76 18 167/106 H 08/13/24 03:21 37 C 80 18 143/88 H 08/13/24 01:30 36.8 C 76 18 157/100 H 08/13/24 00:31 36.7 C 82 82 18 152/100 H 08/13/24 00:05 60 08/12/24 23:09 36.8 C 75 18 128/78 08/12/24 20:34 36.5 C 84 18 151/89 H Pulse Ox O2 Del Method 08/13/24 07:36 100 Room Air 08/13/24 06:41 99 Room Air 08/13/24 05:05 08/13/24 03:21 99 Room Air 08/13/24 01:30 99 Room Air 08/13/24 00:31 99 Room Air 08/13/24 00:05 08/12/24 23:09 95 Room Air 08/12/24 20:34 99 Room Air Medications Administered Home Medications Medication Instructions Recorded Confirmed Last Taken folic acid 1 mg tablet 1 mg PO DAILY 08/11/24 08/11/24 08/11/24 lorazepam 1 mg tablet 1 mg PO TID PRN CIWA Score > 8 08/11/24 08/11/24 08/11/24 olanzapine 15 mg tablet 15 mg PO HS 08/11/24 08/11/24 Unknown thiamine HCl (vitamin B1) 100 mg 100 mg PO DAILY 08/11/24 08/11/24 08/11/24 tablet Active Medications Generic Name Dose Route Start Last Admin Trade Name Randa PRN Reason Stop Dose Admin Folic Acid 1 mg 08/12/24 09:00 08/12/24 11:43 Folic Acid 1 Mg Tab PO 09/11/24 08:59 1 mg DAILY ANA Administration Ceftriaxone Sodium 2,000 mg in 50 mls @ 100 mls/hr 08/12/24 21:00 08/12/24 23:16 Rocephin IV 08/22/24 20:59 Infused Q24H ANA Infusion Sodium Chloride 1,000 mls @ 100 mls/hr 08/12/24 12:45 08/12/24 23:31 Nss IV 09/11/24 12:44 100 mls/hr .Q10H ANA Administration Lorazepam 1 mg 08/11/24 18:06 08/12/24 04:33 Lorazepam 2 Mg/1 Ml Vial IV 09/10/24 18:05 1 mg UD PRN Administration EtOH Withdrawal AWSS Score 6,7 Protocol Lorazepam 2 mg 08/11/24 18:06 08/13/24 05:14 Lorazepam 2 Mg/1 Ml Vial IV 09/10/24 18:05 2 mg UD PRN Administration EtOH Withdrawal AWSS Score 8,9 Protocol Olanzapine 15 mg 08/11/24 21:00 08/12/24 22:31 Olanzapine 5 Mg Tablet PO 09/10/24 20:59 15 mg HS ANA Administration (1) Alcohol withdrawal Complication of substance-induced condition: with delirium Qualified Code(s): F10.931 - Alcohol use, unspecified with withdrawal delirium (3) Contusion of hand, left Encounter type: initial encounter Qualified Code(s): S60.222A - Contusion of left hand, initial encounter (4) Contusion of right middle finger Damage to nail status: without damage Encounter type: initial encounter Qualified Code(s): S60.031A - Contusion of right middle finger without damage to nail, initial encounter
[2024-08-13] MEDS: GABAPENTIN 400 MG CAP PO ONE (08:44)
[2024-08-13 09:03] LABS: BUN Creatinine Ratio 15.1 (10-20); Calcium 8.3 mg/dl (8.6-10.3); Creatinine Clr Calc Pharmacy 120.2 ml/min; Est GFR (African American) 133.5 ml/min; Est GFR (Non-African American) 115.2 ml/min; Magnesium 1.8 mg/dl (1.7-2.4); Potassium 3.6 mmol/L (3.5-5.1)
--- NOTE | 2024-08-13 09:31 | Urology Progress Note ---
Date of Service August 13, 2024 Assessment & Plan (1) Kidney lesion: Plan: Unclear etiology of renal lesion. Clinically he is not showing overt signs of pyelonephritis, however would continue with broad-spectrum antibiotics and narrow coverage as culture data becomes available. If this is a renal infarct, it would be reasonable to proceed with a hypercoagulability workup, however there is no good surgical option for revascularization. Would continue to monitor. If he deteriorates clinically, would reimage to evaluate for abscess formation. Otherwise, would recommend repeat imaging in the next 1-2 months to revisualize this area. Urology can coordinate outpatient follow-up. Will follow peripherally. Admission and Anticipated Discharge Date Admission Date: August 11, 2024 Subjective 39-year-old male admitted with acute alcohol withdrawal, confusion. He was noted on CT scan to have a indeterminate lesion on his kidney, possibly pyelonephritis or developing renal infarct. He remains on broad-spectrum antibiotics with ceftriaxone, urine cultures pending. Hemodynamically stable with no fevers overnight. No leukocytosis. Creatinine remains within normal limits. He is unable to provide any meaningful history this morning due to confusion (talking only about bikes and cars) Physical Exam Physical Exam: Seated in bed, eating breakfast, NAD Results & Data Vital Signs (Past 12 Hours) Vital Signs Temp Pulse Pulse Pulse Resp BP BP 08/13/24 07:36 36.9 C 72 15 156/99 H 08/13/24 06:41 76 16 133/83 08/13/24 05:05 36.7 C 76 18 167/106 H 08/13/24 03:21 37 C 80 18 143/88 H 08/13/24 01:30 36.8 C 76 18 157/100 H 08/13/24 00:31 36.7 C 82 82 18 152/100 H 08/13/24 00:05 60 08/12/24 23:09 36.8 C 75 18 128/78 Pulse Ox O2 Del Method 08/13/24 07:36 100 Room Air 08/13/24 06:41 99 Room Air 08/13/24 05:05 08/13/24 03:21 99 Room Air 08/13/24 01:30 99 Room Air 08/13/24 00:31 99 Room Air 08/13/24 00:05 08/12/24 23:09 95 Room Air PG Care Time/CCT Total # of Minutes Spent Total Time Spent with Patient: Total time spent is greater than 50% in coordination of care (as documented) at patient's floor/unit and/or counseling patient: Coding Level of Care Code 52178 SUB INP/OBS CARE 12/17MIN Diagnoses Kidney lesion N28.9
[2024-08-13] MEDS: THIAMINE HCL 100 MG in SYRINGE 9 ML IV SCH (10:59)
[2024-08-13] MEDS: GABAPENTIN 400 MG CAP PO SCH (14:48)
[2024-08-13] MEDS: THIAMINE HCL 500 MG in SODIUM CHLORIDE 0.9% 50 ML IV SCH (15:58)
[2024-08-13] MEDS ORDERED: THIAMINE HCL 500 MG in SYRINGE 9 ML IV SCH (16:00)
[2024-08-13] MEDS ORDERED: chlordiazePOXIDE HCl 25 MG CAP PO SCH (20:00)
--- NOTE | 2024-08-14 03:19 | Communication Note ---
Date of Service: August 14, 2024 Made aware by RN of AWSS of 7. Patient with hallucinations but not super restless as per RN. Uncontrolled blood pressure. SBP 1 40-1 80s overnight AP Hypertensive urgency Likely chronic BP elevation given cardiomegaly on chest x-ray Alcohol withdrawal Ongoing IVF contributory Initiate lisinopril Stop NSS Continue LISSETH S protocol
[2024-08-14] MEDS ORDERED: lisinopril 2.5 MG TAB PO SCH (04:00)
[2024-08-14] MEDS: GABAPENTIN 400 MG CAP PO SCH (06:24)
[2024-08-14 06:51] LABS: Hematocrit (blood only) 38.3 % (42.0-52.0); Mean Corpuscular Hemoglobin 32.2 pg (25.0-34.0); Mean Corpuscular Hgb Conc 33.9 g/dL (32.0-36.0); Mean Corpuscular Volume 94.8 fL (80.0-100.0); Mean Platelet Volume 11.8 fL (9.4-12.4); Platelet Count 81 K/uL (130-400); RDW Coefficient of Variation 13.2 % (11.5-14.5); RDW Standard Deviation 46.1 fL (36.4-46.3); Red Blood Count 4.04 M/uL (4.70-6.10); White Blood Count 4.21 K/ul (4.8-10.8)
[2024-08-14 07:11] LABS: Albumin Level 3.7 gm/dl (3.4-5.0); BUN Creatinine Ratio 9.3 (10-20); Bilirubin,Total 1.3 mg/dl (0.2-1.0); Calcium 8.8 mg/dl (8.6-10.3); Creatinine Clr Calc Pharmacy 128.3 ml/min; Est GFR (African American) 132.1 ml/min; Est GFR (Non-African American) 113.9 ml/min; Globulin 3.7 gm/dl (2.5-4.0); Magnesium 1.8 mg/dl (1.7-2.4); Phosphorus 2.4 mg/dl (2.5-4.9); Potassium 3.7 mmol/L (3.5-5.1); Total Protein 7.4 gm/dl (6.0-8.3)
[2024-08-14] MEDS: ENOXAPARIN INJ 40 MG/0.4 ML SYR SQ SCH (08:31)
[2024-08-14] MEDS: POT PHOSPHATE MONOBASIC W/ SOD TAB PO SCH (08:34)
[2024-08-14 08:59] LABS: Folate (Folic Acid),Ser orPlas 16.85 ng/ml (>5.38)
--- NOTE | 2024-08-14 10:42 | Hospitalist Progress Note ---
Date of Service August 14, 2024 Assessment & Plan (1) Alcohol withdrawal: (2) Kidney lesion: (3) Contusion of hand, left: (4) Contusion of right middle finger: (5) Chronic alcohol abuse: (6) Pancytopenia: Plan Mr. Lopez is a 39 year old gentleman with no clear medical history who was detained at an immigrant holding facility on 08/09 and brought to the ED on 08/11 for concern for acute alcohol withdrawal. Patient brought to [facility] given reports of agitation starting on 08/10 with subsequent hallucinations of spiders and bugs. Patient tremulous on exam and seemingly very confused. Received notable ativan overnight. Started gabapentin to aid in symptoms, which initially seemed to help however, patient declined the morning of 08/14. Discussed case with Neuro to ensure no other occult eitology. Neurology suspects on going delerium tremens. Plan to discontinue ativan/gabapentin and start single agent protocol with phenobarbital load and PO taper over 3 days. Incidentally on imaging found to have a indeterminate lesion on the left kidney which will require follow up #Alcohol withdrawal c/f delirium tremens #Acute encephalopathy, 2/2 above #Alcohol use disorder Ongoing hallucinations and ativan requirements increased in evening Starting gabapentin to help augment severity of symptoms Monitor Ativan prn dosing through out day Continue AWSS -seemingly improved with gabapentin, discontinue for now Neurology consulted: start phenobarbital load and po taper given AMS, continue IV thiamine 500mg q8h x 3 days #Thrombocytopenia likely iso acute intoxication/chronic AUD continue to trend, anticipate recovery lyme serologies iso ams/pancytopenia and unclear hx #Hepatic steatosis #Mild transaminitis AST > ALT minimally CT imaging with hepatomegaly and steatosis Downtrending on cmp #Abnormal UA #Kidney lesion CT with prominence of bladder -Indeterminant renal lesion, requires follow up -Hypercoag work up pending, however, low suspicion of renal infcarct per Urology will defer AC at this time Continue CTX until culture results #Hand Contusion L>R Hands with erythema and swelling, self induced 2/2 striking jaquez Hand xrays with no acute fractures supportive care DVT start lovenox ppx Dispo 2-3 days likely contingent on mental status Admission and Anticipated Discharge Date Admission Date: August 11, 2024 Subjective Initially doing well this am and planning for possible discharge, however, patient mentation and confusion/restlessness worsened shortly after breakfast Patient not responding appropriately and alert to self, answering in jibberish and seemingly grabbiing at the air Physical Exam Constitutional: laying at the end of the bed, fidgeting with the cuffs--grabbing at air, responds to verbal stimuli but agitated Respiratory: normal respiratory effort, lungs clear to auscultation Cardiovascular: RRR, no murmur, no edema Neurologic: PERRL, EOMI, accommodation nl, no face palsy, no dysarthria Psychiatric: Hallucinations: + visual hallucinations Results & Data Results & Data Vital Signs (Past 12 Hours) Vital Signs Temp Pulse Pulse Resp BP BP Pulse Ox 08/14/24 10:02 70 08/14/24 07:21 37.5 C 73 14 150/98 H 99 08/14/24 03:37 83 08/14/24 03:15 153/105 H 08/14/24 03:11 37.1 C 87 16 153/105 H 99 08/13/24 23:02 36.7 C 88 16 157/96 H 99 O2 Del Method 08/14/24 10:02 08/14/24 07:21 Room Air 08/14/24 03:37 08/14/24 03:15 08/14/24 03:11 Room Air 08/13/24 23:02 Room Air Laboratory Results Short CBC 08/14/24 Range/Units 06:27 WBC 4.21 L (4.8-10.8) K/ul Hgb 13.0 L (14.0-18.0) g/dl Hct 38.3 L (42.0-52.0) % Plt Count 81 L (130-400) K/uL BMP 08/14/24 06:27 Sodium 137 Potassium 3.7 Chloride 107 Carbon Dioxide 25 BUN 7 Creatinine 0.75 Glucose 102 H Calcium 8.8 Liver Function 08/14/24 Range/Units 06:27 Total Bilirubin 1.3 H (0.2-1.0) mg/dl AST 55 H (13-39) U/L ALT 43 (7-52) U/L Alkaline Phosphatase 82 (34-104) U/L Albumin 3.7 (3.4-5.0) gm/dl Medications Administered Home Medications Medication Instructions Recorded Confirmed Last Taken folic acid 1 mg tablet 1 mg PO DAILY 09/08/11/24 08/11/24 lorazepam 1 mg tablet 1 mg PO TID PRN CIWA Score > 8 08/11/24 08/11/24 08/11/24 olanzapine 15 mg tablet 15 mg PO HS 08/11/24 08/11/24 Unknown thiamine HCl (vitamin B1) 100 mg 100 mg PO DAILY 08/11/24 08/11/24 08/11/24 tablet gabapentin 400 mg capsule See Rx Instructions .Route 08/14/24 Unknown .COMPLEX #6 caps Active Medications Generic Name Dose Route Start Last Admin Trade Name Freq PRN Reason Stop Dose Admin Enoxaparin Sodium 40 mg 08/14/24 09:00 08/14/24 08:31 Enoxaparin Inj 40 Mg/0.4 Ml Syr SQ 09/13/24 08:59 Not Given QAM ANA Folic Acid 1 mg 08/12/24 09:00 08/14/24 07:39 Folic Acid 1 Mg Tab PO 09/11/24 08:59 1 mg DAILY ANA Administration Ceftriaxone Sodium 2,000 mg in 50 mls @ 100 mls/hr 08/12/24 21:00 08/13/24 23:45 Rocephin IV 08/22/24 20:59 Infused Q24H ANA Infusion Thiamine HCl 500 mg/ Sodium 55 mls @ 210 mls/hr 08/13/24 16:00 08/14/24 08:38 Chloride IV 08/18/24 15:59 Infused Q8H ANA Infusion Olanzapine 15 mg 08/11/24 21:00 08/13/24 23:35 Olanzapine 5 Mg Tablet PO 09/10/24 20:59 15 mg HS ANA Administration Potassium Phosphate 2 tab 08/14/24 09:00 08/14/24 08:34 Pot Phosphate Monobasic W/ Sod Tab PO 08/14/24 21:01 2 tab QID ANA Administration (1) Alcohol withdrawal Complication of substance-induced condition: with delirium Qualified Code(s): F10.931 - Alcohol use, unspecified with withdrawal delirium (3) Contusion of hand, left Encounter type: initial encounter Qualified Code(s): S60.222A - Contusion of left hand, initial encounter (4) Contusion of right middle finger Damage to nail status: without damage Encounter type: initial encounter Qualified Code(s): S60.031A - Contusion of right middle finger without damage to nail, initial encounter
--- NOTE | 2024-08-14 10:52 | Neurology Consultation ---
Date of Consultation August 14, 2024 Assessment & Plan (1) DTs (delirium tremens): Likely alcohol withdrawal in a 39M with a PMH of chronic alcohol abuse. On exam he is orientated to person and time but not place and moving all extremities. He has been hallucinating and becoming very agitated at time. CT head is unremarkable. I suspect that his symptoms are related to alcohol withdrawal but it is difficult to formally assess language secondary to his confusion and using a policy services representative. Plan -- consider using phenobarb to treat his alcohol withdrawal -- ok to stop gabapentin from my perspective -- if symptoms fail to improve would obtain an MRI -- please reach back out to neurology with any further questions/concerns Telehealth Consultation Telehealth Information Telehealth Information: I performed this visit using a real-time telehealth connection between my location and the patients location ([facility]). After connecting through interactive tele-video, patient was identified by name and date of and/or wristband check.Patient (or authorized healthcare customer field representative) was informed that this was a telemedicine visit and it was being conducted confidentially over secure lines. My office door was closed and no one else was present in the room with me.Patient (or authorized healthcare customer field representative) provided consent to proceed with the visit, expressed an understanding of privacy and security of the telemedicine visit, and gave permission to have a hospital customer field representative in the room in order to assist with the visit and to conduct portions of the visit, as needed. I informed the patient (or authorized healthcare customer field representative) that I reviewed their record and presented the opportunity for them to ask any questions regarding the visit today. The patient agreed to participate. History of Present Illness Reason for Consultation: encephalopathy Attending Physician: Antonia Cook MD History of Present Illness Jarad Warren is a 39M with no clear PMH who presented from an ICE facility with concern of alcohol withdrawal (5 days from his last drink). Since his admission he has been agitated and intermittently reaching for things in the air. He has received numerous doses of ativan with various success. Currently he is confused to his location but awake and interactive and denying hallucinations. he denies headache, fevers, weakness, numbness, slurred speech, chest pain and SOB. Evaluation was done via policy services representative Allergies Allergy/AdvReac Type Severity Reaction Status Date / Time No Known Allergies Allergy Verified 08/11/24 16:25 Home Medications Medication Instructions Recorded Confirmed Type folic acid 1 mg tablet 1 mg PO DAILY 08/11/24 08/11/24 History lorazepam 1 mg tablet 1 mg PO TID PRN CIWA Score > 8 08/11/24 08/11/24 History olanzapine 15 mg tablet 15 mg PO HS 08/11/24 08/11/24 History thiamine HCl (vitamin B1) 100 mg 100 mg PO DAILY 08/11/24 08/11/24 History tablet gabapentin 400 mg capsule See Rx Instructions .Route 08/14/24 Rx .COMPLEX #6 caps Patient History Medical History Chronic alcohol abuse Social History Smoking Status: Never smoker Hx Alcohol Use: Yes Alcohol type: hard liquor Hx Substance Use: No Preferred Language: Armenian Communication Ability: Armenian Communication Tools: IPad and Facial Expression Forms Analysis Manager Required: Yes Beliefs That Will Affect Care: None Current Living Situation: Other Other Information That Helps Us Care for You: No Feels Safe at Home: Yes Safety Concerns: Feels Safe At This Time Assistive Devices: None Physical Exam Awake and alert, Oriented to person, and time but not place, speech reportedly normal, no aphasia, follows simple and complex commands Holds all extremities against gravity, no abnormal movements or tremors at this time Sensation intact throughout Results & Data Vital Signs (Past 12 Hours) Vital Signs Temp Pulse Pulse Resp BP BP Pulse Ox 08/14/24 10:02 70 08/14/24 07:21 37.5 C 73 14 150/98 H 99 08/14/24 03:37 83 08/14/24 03:15 153/105 H 08/14/24 03:11 37.1 C 87 16 153/105 H 99 08/13/24 23:02 36.7 C 88 16 157/96 H 99 O2 Del Method 08/14/24 10:02 08/14/24 07:21 Room Air 08/14/24 03:37 08/14/24 03:15 08/14/24 03:11 Room Air 08/13/24 23:02 Room Air Laboratory Results Abnormal Lab Results 08/14/24 06:27 WBC 4.21 L RBC 4.04 L Hgb 13.0 L Hct 38.3 L MCV 94.8 MCH 32.2 MCHC 33.9 RDW Std Deviation 46.1 RDW Coeff of Armos 13.2 Plt Count 81 L MPV 11.8 Sodium 137 Potassium 3.7 Chloride 107 Carbon Dioxide 25 Anion Gap 5 BUN 7 Creatinine 0.75 Est Cr Clr Drug Dosing 128.3 Est GFR ( Amer) 132.1 Est GFR (Non-Af Amer) 113.9 BUN/Creatinine Ratio 9.3 L Glucose 102 H Calcium 8.8 Phosphorus 2.4 L Magnesium 1.8 Total Bilirubin 1.3 H AST 55 H ALT 43 Alkaline Phosphatase 82 Total Protein 7.4 Albumin 3.7 Globulin 3.7 Albumin/Globulin Ratio 1.0 Vitamin B12 8[address] head - unremarkable.
[2024-08-14] MEDS ORDERED: PHENobarbital PO Alcohol Withdrawal PO STA (11:01)
[2024-08-14] MEDS ORDERED: PHENobarbital sodium 65 MG/ML VIAL IV PRN (11:16)
[2024-08-14] MEDS: PHENobarbital sodium 130 MG/ML VIAL IM STA (12:00)
[2024-08-14] MEDS: PHENobarbital sodium 65 MG/ML VIAL IV STA (12:50)
[2024-08-14] MEDS: PHENobarbital sodium 65 MG/ML VIAL IM SCH (15:09)
[2024-08-14] MEDS ORDERED: LORazepam 2 MG/1 ML VIAL IV PRN (23:42)
[2024-08-14] MEDS ORDERED: Ativan IV Alcohol Withdrawal--Active Protocol IV PRN (23:42)
[2024-08-14] MEDS: LORazepam 2 MG/1 ML VIAL IV PRN (23:58)
[2024-08-15] MEDS: LORazepam 2 MG/1 ML VIAL IV PRN (05:37)
[2024-08-15] MEDS: PHENobarbitaL 30 MG TAB PO SCH (05:56)
[2024-08-15] MEDS ORDERED: GABAPENTIN 400 MG CAP PO SCH (10:00)
[2024-08-15 10:17] LABS: Hematocrit (blood only) 39.5 % (42.0-52.0); Hemoglobin 13.4 g/dl (14.0-18.0); Mean Corpuscular Hemoglobin 32.4 pg (25.0-34.0); Mean Corpuscular Hgb Conc 33.9 g/dL (32.0-36.0); Mean Corpuscular Volume 95.4 fL (80.0-100.0); Mean Platelet Volume 11.8 fL (9.4-12.4); Platelet Count 92 K/uL (130-400); RDW Coefficient of Variation 13.1 % (11.5-14.5); RDW Standard Deviation 46.2 fL (36.4-46.3); Red Blood Count 4.14 M/uL (4.70-6.10); White Blood Count 4.23 K/ul (4.8-10.8)
[2024-08-15 10:36] LABS: Albumin Globulin Ratio 1.1 (0.9-2); Albumin Level 3.8 gm/dl (3.4-5.0); BUN Creatinine Ratio 8.9 (10-20); Bilirubin,Total 1.5 mg/dl (0.2-1.0); Calcium 8.8 mg/dl (8.6-10.3); Est GFR (African American) 129.3 ml/min; Est GFR (Non-African American) 111.5 ml/min; Globulin 3.6 gm/dl (2.5-4.0); Magnesium 1.8 mg/dl (1.7-2.4); Phosphorus 3.4 mg/dl (2.5-4.9); Potassium 3.1 mmol/L (3.5-5.1); Total Protein 7.4 gm/dl (6.0-8.3)
--- NOTE | 2024-08-15 11:28 | Hospitalist Progress Note ---
Date of Service August 15, 2024 Assessment & Plan (1) Toxic metabolic encephalopathy: (2) Alcohol withdrawal: (3) Kidney lesion: (4) Contusion of hand, left: (5) Contusion of right middle finger: (6) Chronic alcohol abuse: (7) Pancytopenia: Plan Patient with persistent toxic metabolic encephalopathy in the setting of chronic alcohol misuse and abuse and withdrawal with delirium tremens. Patient on phenobarbital taper. Ativan requirements are last 24 hours significantly decreased Continue phenobarbital taper, activity as tolerated Replace potassium Therapies Admission and Anticipated Discharge Date Admission Date: August 11, 2024 Subjective Patient asleep but able to be awakened. Still seems somewhat confused. Orientation altered Physical Exam Physical Exam: Constitutional: Alert, drowsy HEENT: Mucous membranes moist. Lungs: Clear to auscultation, decreased, no wheezes rales or rhonchi CV: S1-S2, regular Abdomen: Soft, nontender, nondistended Extremities: No significant edema Neuro: No focal deficits Psych: Confused, disoriented Results & Data Results & Data Vital Signs (Past 12 Hours) Vital Signs Temp Pulse Pulse Resp BP Pulse Ox O2 Del Method 08/15/24 07:32 36.5 C 57 L 20 129/89 98 Room Air 08/15/24 03:54 36.4 C L 80 18 169/97 H 08/15/24 03:25 98 H 08/15/24 00:15 37 C 78 18 143/84 H 97 Room Air Diagnostic Findings Reviewed imaging, laboratory and diagnostic studies. Pertinent findings as below. Potassium 3.1 CBC stable (2) Alcohol withdrawal Complication of substance-induced condition: with delirium Qualified Code(s): F10.931 - Alcohol use, unspecified with withdrawal delirium (4) Contusion of hand, left Encounter type: initial encounter Qualified Code(s): S60.222A - Contusion of left hand, initial encounter (5) Contusion of right middle finger Damage to nail status: without damage Encounter type: initial encounter Qualified Code(s): S60.031A - Contusion of right middle finger without damage to nail, initial encounter
[2024-08-15] MEDS: POTASSIUM CHLORIDE CRTAB 20 MEQ TABCR PO SCH (12:25)
[2024-08-16] MEDS: PHENobarbitaL 30 MG TAB PO SCH (06:21)
[2024-08-16 07:15] LABS: BUN Creatinine Ratio 13.2 (10-20); Calcium 9.1 mg/dl (8.6-10.3); Creatinine Clr Calc Pharmacy 115.4 ml/min; Est GFR (African American) 131.3 ml/min; Est GFR (Non-African American) 113.3 ml/min
[2024-08-16 07:17] LABS: Anti Cardiolipin Ab IgG <2.0 GPL-U/mL; Anti Cardiolipin Ab IgM <2.0 MPL-U/mL; B2 Glycoprotein IgG <2.0 U/mL (<20.0); B2 Glycoprotein IgM <2.0 U/mL (<20.0)
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
[2024-08-16] MEDS ORDERED: GABAPENTIN 400 MG CAP PO SCH (22:00)
[2024-08-17 08:32] VITALS: O2SAT 98
[2024-08-17] MEDS: THIAMINE HCL 100 MG TAB PO SCH (08:32)
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
[2024-08-17 16:16] VITALS: BP 116/73; PULSE 87; RESP 18; TEMP 99.3
[2024-08-17] MEDS: PHENobarbitaL 30 MG TAB PO SCH (16:30)
[2024-08-17] MEDS ORDERED: PHENobarbitaL 30 MG TAB PO SCH (18:00)
[2024-08-18 00:17] LABS: Babesia microti DNA Not Detected (Not Detected)
[2024-08-18 01:23] LABS: PTT LA Screen 33 sec (<=40)
== END 2024-08-17 17:43 | DRG 896 ==
LOC: ED 12:32 → EDINP 15:18 → SUATTDRO 15:18 → 2N 18:06 → 2S 08-12 04:52 → 3E 08-16 18:36